=== PATIENT | female | born 1980 | race Caucasian/White ===

== ENCOUNTER 2020-12-26 17:52 | Emergency (ER) | payer OTHER ==
[2020-12-26] MEDS ORDERED: NAPROXEN500 MG PO (19:52)
[2020-12-26] MEDS ORDERED: BACLOFEN 10MG T10 MG PO (19:52)
== END 2020-12-26 20:21 | disposition home or self-care (01) ==
LOC: FER 17:52
DX: S46.912A Strain of unspecified muscle, fascia and tendon at shoulder and upper arm level, left arm, initial encounter (principal); M25.532 Pain in left wrist; M79.642 Pain in left hand; F17.210 Nicotine dependence, cigarettes, uncomplicated; W19.XXXA Unspecified fall, initial encounter; Y92.009 Unspecified place in unspecified non-institutional (private) residence as the place of occurrence of the external cause
CPT/HCPCS: 73030; 73080; 73110; 96372; J1100; J1885